=== PATIENT | female | born 1985 | race American Indian/Alaskan Native ===

== ENCOUNTER 2017-04-12 09:53 | Emergency (ER) | payer OTHER ==
[~2017-04-12] VITALS: Ht 162.6 cm; Wt 81.6 kg
== END 2017-04-12 12:40 | disposition home or self-care (01) ==
LOC: ED 09:53
PROC: 2W3DX1Z Immobilization of Left Lower Arm using Splint (ICD-10-PCS; principal; 2017-04-12)
DX: G56.02 Carpal tunnel syndrome, left upper limb (principal)
CPT/HCPCS: 96372; 99283; J1885; L3908